=== PATIENT | male | born 1965 | race Caucasian/White ===

== ENCOUNTER 2024-05-04 13:07 | Day surgery (SDC) | payer OTHER, SELFPAY ==
[2024-05-04] VITALS (17 sets, daily range): BP systolic 126–172; BP diastolic 72–103; BMI 40.2
--- NOTE | 2024-05-04 09:16 | ED.GENMED ---
History of Present Illness
General
Chief Complaint: Abdominal Pain
Source: patient and family
Exam Limitations: none
Time Seen by Provider: 05/04/24 09:05
Nursing documentation reviewed up to this point in time: agreed with
History of Present Illness
History of Present Illness:
Patient presents to ED secondary to intermittent right flank/lower abdominal pain over the past 4 days. Patient reports nausea sensation without vomiting. Denies fever or chills. Denies difficulty with urination. Patient has a history of
multiple similar symptoms in the past, secondary to kidney stones. Patient has been drinking more water recently, in hopes of passing the stone. Denies trauma. Denies back pain. Denies recent illness. No recent change in medications or diet.
Past History
Past History
ED Past Medical History: HTN, Hypercholesterolemia and Other (Superficial thrombophlebitis)
ED Past Surgical History: Appendectomy, Cholecystectomy and Urological (Kidney stones)
Social History
Tobacco: Non-smoker
Alcohol: None
Drug: None
Personal:
Living: with family
Review of Systems
Review of Systems
Allergies reviewed?: Yes
All Other Systems: ROS reviewed and negative except as documented in HPI and ROS
Constitutional: Reports no symptoms; Denies fever or chills
ABD/GI: Reports abdominal pain and nausea; Denies vomiting
: Reports flank pain
Musculoskeletal: Reports no symptoms
Skin: Reports no symptoms
Neurological: Reports no symptoms
Phy Exam
Physical Exam
Physical Exam:
Physical Exam
General: moderate painful distress, not acutely ill. afebrile.
Head: nc/at. eomi
Neck: supple. normal range of motion
Abdomen: normal bowel sounds. no focal tenderness. no distention
Neuro: alert and oriented. no focal neurological deficits
Skin: no rash
Psychiatric: well kept. interactive and cooperative
Extremities: no edema. no calf tenderness.
Course
Orders/Labs/Results
Orders:
Orders
05/04/24 09:13
Ketorolac [Toradol] 15 mg IV NOW STA
Ondansetron Injectable [Zofran] 4 mg IV NOW STA
05/04/24 09:14
CT Abd/pel Without Iv Or Oral Urgent
Comment:
Reason For Exam: right flank pain w hx kidney stone
05/04/24 09:27
Basic Metabolic Panel Urgent
Complete Blood Count/With Diff Urgent
05/04/24 09:39
HYDROmorphone [Dilaudid] 0.5 mg IV NOW STA
05/04/24 Lunch
NPO
Allow oral meds: No
Allow clear liquids: No
NPO with Ice Chips: Yes
05/04/24 11:14
Urinalysis Reflex To Culture Urgent
Date Specimen was Collected: 05/04/24
Time Specimen was Collected: 11:13
Urine Microscopic Reflex Cult Urgent
05/04/24 11:29
CeFAZolin SODIUM [Ancef] 3,000 mg Syringe [Syringe-Pump] 0 ml IV PRE PROCEDURE
HYDROmorphone [Dilaudid] 0.5 mg IV Q3HPRN PRN
05/04/24 11:30
0.9% Sodium Chloride 1000 ml [Nss] 1,000 ml IV 100 mls/hr
Anti-embolism (DAGMAR) Hose As Directed
Type: Thigh high
Pneumatic Compression Sleeves As Directed
Type: Thigh high
DX Deep Vein Thrombosis Video Routine
05/04/24 12:00
Ketorolac [Toradol] 30 mg IV Q8H
05/04/24 12:06
HYDROmorphone [Dilaudid] 0.25 mg IV PACU-Q5MPRN PRN
HYDROmorphone [Dilaudid] 0.5 mg IV PACU-Q5MPRN PRN
Meperidine [Demerol] 12.5 mg IV PACU-Q5MPRN PRN
Ondansetron Injectable [Zofran] 4 mg IV PACU-ONCEPRN PRN
Prochlorperazine [Compazine] 5 mg IV PACU-ONCEPRN PRN
Notify MD As Directed
Notify physician if: for SDS patients with known or suspected sleep obstructive sleep apnea, monitor in the
PACU.
Notify MD for any apneic/desaturation episodes
O2 Therapy [RESP] Urgent
Titrate/Wean O2 to maintain O2 sat greater than (%): 92
Special Instructions: -Provide supplemental oxygen to achieve O2 sat of 92% or greater.
-After 15 min, may wean O2 and discontinue if patient is able to maintain O2 sat of 92%
or greater during recovery period.
If patient is a discharge home, without oxygen therapy, notify anestheiologist if
unable to maintain O2 SAT of 92% or greater on room air for MD clearance.
05/04/24 12:30
0.9% Sodium Chloride 1000 ml [Nss] 1,000 ml IV 100 mls/hr
05/04/24 12:38
Midazolam HCl [Versed] 2 mg .ROUTE .STK-MED ONE
05/04/24 12:51
Fentanyl Citrate/Pf [Sublimaze] 100 mcg .ROUTE .STK-MED ONE
05/04/24 13:00
CeFAZolin 2 GRAM [Ancef] 2 grams in 10 ml IV PRE PROCEDURE
Ketorolac [Toradol] 30 mg IV Q8H
Lidocaine 2% Mpf [Xylocaine Mpf 2%] 100 mg .ROUTE .STK-MED ONE
Ondansetron Injectable [Zofran] 4 mg .ROUTE .STK-MED ONE
Propofol [Diprivan] 20 ml .ROUTE .STK-MED
05/04/24 13:10
HYDROmorphone [Dilaudid] 0.5 mg IV Q3HPRN PRN
05/04/24 13:19
Acetaminophen 1000MG/100Ml [Ofirmev] 1,000 mg in 100 ml .ROUTE .STK-MED
05/04/24 13:20
Lidocaine 2% [Lidocaine Uro-Jet 2%] 1 syringe .ROUTE .STK-MED ONE
05/04/24 13:44
Phenazopyridine HCl [Pyridium] 200 mg PO NOW STA
05/04/24 13:48
CR Abdomen - 1 View Routine
Reason For Exam: CYSTO RIGHT STENT PLACEMENT
RF Fluoroscopy, C-arm Routine
05/04/24 13:53
Admit/Transfer Patient As Directed
Co-Sign Provider:
Level of Care: Post Proc/Surg Recovery
Assign to:: Medical/Surgical
Physician / Group: Deion Richter
Diagnosis: Right obstructive kidney stone
Reason for Overnight Stay: Require IV med-pain
PRN Pain Medication Management As Directed
May give lesser potent ordered pain med per pt: Yes
preference::
Protocol:: Medication orders for pain may be administered in a
manner that supports deferring to patient preference
when the pt is:
- Requesting an ordered lesser potent pain medication.
Least to most potent pain medications are defined
as: acetaminophen < NSAID < tramadol < opioids
(morphine, oxycodone, hydromorphone).
- Requesting a lesser dose of the same medication IF
ORDERED.
- Requesting a less intrusive route of administration
if both routes are prescribed by the provider (PO <
IV).
05/04/24 13:55
Code Status As Directed
Resuscitation Status: Full Code
05/04/24 14:21
Phenazopyridine HCl [Pyridium] 200 mg .ROUTE .STK-MED ONE
Abnormal Lab Results
05/04/24 05/04/24
09:27 11:14
Absolute Monos (auto) 1.0 H 10^3/uL
(0.1-0.6)
Monocytes % 11.6 H %
(1.7-9.3)
BUN 33 H mg/dl
(9-20)
Creatinine 3.5 H mg/dL
(0.7-1.3)
Glucose 119 H mg/dl
(70-99)
Ur Occult Blood Reflex 1+ A
(Negative)
Leukocyte Esterase Rfl Trace A
(Negative)
Urine RBC 3-6 A /HPF
(0-2)
Urine Albumin (Reflex) 1+ A
(Neg - Trace)
05/04/24 09:27
05/04/24 09:27
Vital Signs
Initial and Last Documented VS:
Initial Vital Signs
Temp Pulse Resp BP Pulse Ox
98.8 F 104 16 172/103 98
05/04/24 08:55 05/04/24 08:55 05/04/24 08:55 05/04/24 08:55 05/04/24 08:55
Last Documented Vital Signs
Temp Pulse Resp BP Pulse Ox
97.7 F 86 30 154/87 94
05/04/24 13:43 05/04/24 14:15 05/04/24 14:15 05/04/24 14:15 05/04/24 14:15
MDM/Problems Addressed
MDM/Problems Addressed:
Discussed with on-call urology () -recommends admission to hospital service with tentative plan to take patient to the OR later this afternoon, in light of acute renal failure.
*Critical Care Note
Total Time (30-74mins, 75-104mins- exclusive of procedures): Not Applicable
ED Attending Note
-
Portions of this chart may have been created with voice recognition software.� Occasional wrong word or��sound alike� substitutions may have occurred due to the inherent limitations of voice recognition software.
Discharge Plan
Departure
Patient Disposition: Admit
Date of Disposition: 05/04/24
Time of Disposition: 11:10
Admit to: Med/Surg
Presentation/result/management discussed w/ accepting MD/DO: Hospitalist
Discharge Problem:
Renal colic, Acute renal failure
Interventions
Interventions:
*Risk Screen - Suicide Last Done: 05/04/24 08:55
*General Assessment Last Done: 05/04/24 09:31
*Neglect/Abuse Screening Last Done: 05/04/24 08:55
ED- Fall Risk Assessment Last Done: 05/04/24 09:32
*ED COVID-19 Vaccine History Last Done: 05/04/24 09:31
*Nursing Disposition Last Done: 05/04/24 12:26
HE-Fgexcv-Fjxilletwp Assessment Last Done: 05/04/24 09:32
Discharge Date and Time
Discharge Date/Time: 05/04/24 12:26
[2024-05-04] MEDS: TORADOL 15 MG IV (09:24)
[2024-05-04] MEDS: ZOFRAN 4 MG IV (09:24)
[2024-05-04 09:46] LABS: % Basophils 0.5 % (0-2); % Eosinophils 2.1 % (0-6); % Immature Granulocytes 0.2 % (0-0.5); % Lymphocytes 24.7 % (20.5-51.1); % Monocytes 11.6 % (1.7-9.3); % Neutrophils 60.9 % (42.2-75.2); Absolute Eosinophils 0.2 10^3/uL (0-0.7); Hematocrit 42.4 % (39.0-52.0); Hemoglobin 15.4 g/dL (13.0-18.0); Mean Corp Hgb Conc. 36.3 g/dL (33.0-37.0); Mean Corpuscular Hgb 30.4 pg (27.0-31.0); Mean Corpuscular Volume 83.6 fL (80.0-94.0); Mean Platelet Volume 9.8 fL (7.4-10.4); Nucleated Red Blood Cells % 0 % (-); Platelet Count 218 10^3/uL (130-400); Red Blood Cell Count 5.07 10^6/uL (4.70-6.10); Red Cell Dist. Width 12.2 % (11.5-14.5); White Blood Cell Count 8.2 10^3/uL (4.8-10.8)
--- NOTE | 2024-05-04 09:50 | EDRN ---
Pain now 09/27. Dr. Blackwell in room w/pt.
[2024-05-04 09:52] LABS: Blood Urea Nitrogen 33 mg/dl (9-20); Calcium 9.2 mg/dl (8.4-10.2); Carbon Dioxide 27 mmol/L (22-30); Chloride 101 mmol/L (98-107); Estimated Creatinine Clearance 26 ml/min; Glucose 119 mg/dl (70-99); Potassium 4.1 mmol/L (3.5-5.1); Sodium 139 mmol/L (135-145); eGFR 19.16
[2024-05-04] MEDS: DILAUDID 0.5 MG IV (09:52)
--- NOTE | 2024-05-04 09:59 | EDRN ---
Dr. Blackwell TT'd BUN and Creat of 33 and 3.5 results and saw them.
--- NOTE | 2024-05-04 11:04 | EDRN ---
Dr. Blackwell in room w/pt at this time.
--- NOTE | 2024-05-04 11:11 | EDRN ---
Dr. Ornelas, urologist, in room w/pt.
--- NOTE | 2024-05-04 11:16 | EDRN ---
Urine spec obtained and sent at this time.
--- NOTE | 2024-05-04 11:30 | CON.MD ---
Consultation - Medical
-
see dictated note
pt with prior h of stones
presents with right flank pain and cr-3.5
ct shows multiple stones in right kidney and obstructing mid ureteral stone
left kidney somewhat atrophic with prob chronic left upj
plan
reviewed with pt and
npo
given ARF- to OR for right ureteral stent and med admit to monitor renal function
will then need oupt pt scheduling for ureteroscopy and stone extraction
risks, benefits, alternatives and disabilities of procedure reviewed
[2024-05-04 12:06] LABS: Urine Albumin 1+ (Neg - Trace); Urine Bilirubin Negative (Negative); Urine Character Clear (Clear); Urine Color Yellow; Urine Glucose Negative (Negative); Urine Ketone Negative (Negative); Urine Leukocyte Trace (Negative); Urine Nitrite Negative (Negative); Urine Occult Blood 1+ (Negative); Urine Urobilinogen Negative (Neg - 1+)
--- NOTE | 2024-05-04 12:25 | EDRN ---
Addendum entered by Yue Kuhn RN 05/04/24 12:26:
at 12:20 not 12:25
Original Note:
Report called to Jr Yu RN in OR at this time.
--- NOTE | 2024-05-04 12:56 | W.SUR.PREOP ---
Pre-Operative Surgical Note
-
I have examined this patient prior to the performance of the scheduled procedure.
The patient's condition is unchanged from the time of the current History and
Physical and the patient is able to undergo the scheduled procedure.
--- NOTE | 2024-05-04 13:39 | W.IMMPOSTOP ---
Surgical Immed Post Op Note
-
Primary Surgeon: Cleopatra
Pre-op Diagnosis: CLIFF, obstructing mid right ureteral stone, non-obstructing bilateral renal stones
Post-op Diagnosis: Same, BPH w/ obstructing median lobe
Procedure Performed: cysto, right stent placement
Anesthesia Type: LMA
Specimen / Cultures: None/None
Estimated Blood Loss: Negligible
Drains:
1. 4.7Fr x 24 cm JJ right ureteral stent
2. 20Fr Coude catheter
Complications: None
Operative Findings: Obstructing median lobe component w/ angulation of prostatic urethra, normal bladder, final KUB confirming appropriate right ureteral stent position.
[2024-05-04] MEDS: Pyridium 200 MG PO (14:23)
--- NOTE | 2024-05-04 15:40 | PTCARENOTE ---
Pt received from the PACU via stretcher. Transport was w/o incident. Pt is AAOx3, HRR, lungs are clear, resp. easy. Pulse ox 96%RA. VSS. Pt had voided in PACU just prior to transport, will monitor closely. Pt denies pain or nausea at this time. Pt
instructed on plan of care. Pt verbalized understanding of instructions. Call kim is within reach.
--- NOTE | 2024-05-04 16:38 | HPS.HSE ---
Family Physician
-
Family Physician: Christian Potter
Chief Complaint
-
Right-sided flank pain
History of Present Illness
Patient is a 58-year-old male with past medical history of essential hypertension, hyperlipidemia, history of nephrolithiasis, history of appendectomy, history of cholecystectomy came to ER with right sided flank pain for 4 days. Patient had
associated nausea without vomiting. No reported fever or chills. Patient did not notice any signs of hematuria/dysuria. Patient does have history of kidney stones in the past and have seen by urology. Denies of any cardiopulmonary complaints in
ER.
Patient seen in ER by urology services and on CT abdomen pelvis was found to having right-sided obstructive uropathy and hydroureteronephrosis, was taken to the OR with ureteral stent placement. Patient was examined postoperatively in recovery
room. Patient was not voicing any complaints of ongoing chest pain/shortness of breath/cough/fever/abdominal pain/nausea/vomiting during the visit.
Medical History
Past Medical History
Past Medical History: Reports Other
Additional Past Medical History:
essential hypertension, hyperlipidemia, history of nephrolithiasis, history of appendectomy, history of cholecystectomy
Past Surgical History: Reports Other
Social History
Tobacco: Non-smoker
Alcohol: None
Drug: None
Living: With Family
Family History
Family History: Not pertinent
Allergies / Home Medications
Allergies reflects when Allergies were last updated in [facility].
Home Medications with original date entered in [facility]
Allergy/Medication List:
Allergies
Allergy/AdvReac Type Severity Reaction Status Date / Time
No Known Allergies Allergy Unverified 05/04/24 15:33
Home Medications
acetaminophen 325 mg tablet (Tylenol) 650 mg PO Q6HPRN PRN mild pain 05/04/24
amlodipine 10 mg tablet (Norvasc) 10 mg PO DAILY 05/04/24
lisinopril 20 mg tablet 20 mg PO DAILY 05/04/24
simvastatin 40 mg tablet (Zocor) 40 mg PO QPM 05/04/24
Review of Systems
-
A 12 point ROS was completed and negative except as noted: Yes
Physical Exam
Vital Signs
Vital Signs
Temp Pulse Resp BP Pulse Ox
98 F 77 16 149/85 96
05/04/24 15:40 05/04/24 15:40 05/04/24 15:40 05/04/24 15:40 05/04/24 15:40
Physical Exam
General: No Apparent Distress
HEENT: NormoCephalic, Anicteric and Atraumatic
Respiratory: Clear
Cardiac: S1/S2 and Regular Rhythm; No Murmur or Rub
GI: Soft, Non Tender, Non Distended and Normal Bowel Sounds; No Organomegaly
Musculoskeletal: No Clubbing, No Cyanosis and No Edema
Skin: No Rash
Neuro: Awake, Alert, Oriented and Nonfocal/grossly intact
Laboratory Results
-
05/04/24 09:27
05/04/24 09:27
Impression/Plan
-
CT a/p
1. MODERATE ACUTE RIGHT HYDROURETERONEPHROSIS secondary to a 6.1 mm obstructing calculus in the right mid ureter.
2. Multiple bilateral nonobstructing intrarenal calculi.
3. Mild dilatation of the left intrarenal collecting system and left renal pelvis suspicious for a mild chronic left ureteropelvic junction obstruction.
4. Multiple left renal cysts (including complex rim-calcified and hemorrhagic cysts).
5. Moderate diffuse hepatic steatosis.
6. Mild mesenteric lymphadenopathy.
7. Mild splenomegaly.
8. Moderate-sized paraesophageal hiatal hernia.
9. Previous cholecystectomy.
10. Mild diverticulosis in the colon.
11. Mildly enlarged prostate gland causing chronic urinary bladder outlet obstruction.
12. Severe discogenic degenerative disease at L4/L5.
13. 1.6 cm part solid pulmonary nodule in the right lower lobe. Diagnostic possibilities are (1) right lower lobe lung cancer, (2) focal scarring/atelectasis, or (3) a focal region of infectious or inflammatory pneumonitis. A follow-up chest CT
examination in 3-6 months is recommended.

1. Right obstructive uropathy
Right hydroureteronephrosis
-6.1 mm obstructing calculus in the right mid ureter
-Patient underwent ureteral stent placement
-UA relatively clear, monitor off of abx
-Maintain on pain meds/anti-emetics/IVF
2. Right lower lobe pulmonary nodule
-Incidental finding on CT abdomen pelvis, will require follow-up with pulmonology in office
3. CLIFF
-Last known creatinine in February 09 was 1.1, today its 3.5
-Monitor post IVF
-Leos cath in place
-Hold lisinopril for now
4. Essential HTN
-maintain on amlodipine only
Paraesophageal hiatal hernia
Diverticulosis
Bilateral nephrolithiasis
Multiple renal cysts
Chronic urinary ROBIN
DVT PPX- SCD
Full code
Total time spent :77 mins
I personally saw and examined the patient.
I have reviewed all diagnostic interpretations and treatment plans as written.
Time includes patient management by me, time spent at the patients bedside, time to review lab and imaging results, discussing patient care, documentation in the medical record, and time spent with the family or caregiver and discussing care plan
with RN/Consultants.
[2024-05-04] MEDS: LIPITOR 20 MG PO (17:30)
[2024-05-04] MEDS: NSS 1000 IV (17:30)
[2024-05-04] MEDS: TYLENOL 650 MG PO (21:58)
[2024-05-05 03:15] VITALS: BP 136/85
[2024-05-05] MEDS: NSS 1000 IV (04:01)
[2024-05-05 06:40] LABS: Hematocrit 39.1 % (39.0-52.0); Hemoglobin 13.6 g/dL (13.0-18.0); Mean Corp Hgb Conc. 34.8 g/dL (33.0-37.0); Mean Corpuscular Volume 86.3 fL (80.0-94.0); Mean Platelet Volume 9.8 fL (7.4-10.4); Platelet Count 233 10^3/uL (130-400); Red Blood Cell Count 4.53 10^6/uL (4.70-6.10); White Blood Cell Count 7.3 10^3/uL (4.8-10.8)
[2024-05-05 07:08] LABS: Blood Urea Nitrogen 37 mg/dl (9-20); Carbon Dioxide 24 mmol/L (22-30); Chloride 106 mmol/L (98-107); Estimated Creatinine Clearance 44 ml/min; Glucose 129 mg/dl (70-99); Sodium 142 mmol/L (135-145); eGFR 35.37
[2024-05-05 07:24] VITALS: BP 134/85
[2024-05-05] MEDS: NORVASC 10 MG PO (08:51)
[2024-05-05 10:54] VITALS: BP 139/77
--- NOTE | 2024-05-05 11:47 | W.PN.URO.CBU ---
Today's Communication / Plan
-
fit for discharge from standpoint
Assessment / Plan
-
CLIFF, obstructing mid right ureteral stone, non-obstructing bilateral renal stones
improving renal fxn
Diagnosis
-
Date of Service: May 05, 2024
-
Patient Diagnosis: CLIFF, obstructing mid right ureteral stone, non-obstructing bilateral renal stones
BPH w/ obstructing median lobe
Procedure Performed: cysto, right stent placement
Post Op Day: 1
Subjective
-
'I feel ready to go home'
Objective
-
Vital Signs
Temp Pulse Resp BP Pulse Ox
98.6 F 85 15 139/77 96
05/05/24 10:54 05/05/24 10:54 05/05/24 10:54 05/05/24 10:54 05/05/24 10:54
Intake and Output
05/04/24 05/05/24 05/06/24
06:59 06:59 06:59
Intake Total 2360 / 2360
Output Total 2024
Balance 335 / 335
Intake:
Oral fluids 960 / 960
IV fluids (Total) 1400 / 1400
NSS 200 / 200
Output:
Urine, Voided 2024
Other:
Number of approximated MODERATE 2
amounts of urine
Laboratory Results
05/05/24 06:15
05/05/24 06:15
Physical Exam
-
General - well developed, well nourished, no acute distress
--- NOTE | 2024-05-05 12:03 | CM ---
CM following re: d/c planning.
Pt for d/c today, cleared by .
Post op day 1: cysto, right stent placement.
Pt from home, resides with in private residence.
Pt independent with mobility and ADLs.
No DME or VN in the home.
PCP is Dr. Potter and pharmacy [facility].
Pt has no d/c needs. Family transport home.
[2024-05-05] MEDS: AFLURIA (36 mos+) 2024-2025 FORMULA 0.5 ML IM (12:39)
--- NOTE | 2024-05-05 14:11 | W.PN.HOSP.TC ---
Today's Communication/Plan
-
d/c home
Assessment / Plan
Assessment / Plan
CT a/p
1. MODERATE ACUTE RIGHT HYDROURETERONEPHROSIS secondary to a 6.1 mm obstructing calculus in the right mid ureter.
2. Multiple bilateral nonobstructing intrarenal calculi.
3. Mild dilatation of the left intrarenal collecting system and left renal pelvis suspicious for a mild chronic left ureteropelvic junction obstruction.
4. Multiple left renal cysts (including complex rim-calcified and hemorrhagic cysts).
5. Moderate diffuse hepatic steatosis.
6. Mild mesenteric lymphadenopathy.
7. Mild splenomegaly.
8. Moderate-sized paraesophageal hiatal hernia.
9. Previous cholecystectomy.
10. Mild diverticulosis in the colon.
11. Mildly enlarged prostate gland causing chronic urinary bladder outlet obstruction.
12. Severe discogenic degenerative disease at L4/L5.
13. 1.6 cm part solid pulmonary nodule in the right lower lobe. Diagnostic possibilities are (1) right lower lobe lung cancer, (2) focal scarring/atelectasis, or (3) a focal region of infectious or inflammatory pneumonitis. A follow-up chest CT
examination in 3-6 months is recommended.

1. Right obstructive uropathy
Right hydroureteronephrosis
-6.1 mm obstructing calculus in the right mid ureter
-Patient underwent ureteral stent placement
-UA relatively clear, monitor off of abx
-Maintain on pain meds/anti-emetics/IVF
2. Right lower lobe pulmonary nodule
-Incidental finding on CT abdomen pelvis, will require follow-up with pulmonology in office
3. CLIFF - Improved
-Last known creatinine in February 09 was 1.1, came to down 2.1 today
-Instructed to hold lisinopril.
4. Essential HTN
-maintain on amlodipine only
Paraesophageal hiatal hernia
Diverticulosis
Bilateral nephrolithiasis
Multiple renal cysts
Chronic urinary ROBIN
DVT PPX- SCD
Full code
Anticipated Discharge: Today
Subjective/Interval History
-
Date of Service: May 05, 2024
no complains overnight
afebrile overnight
Objective Data
-
Labs:
Laboratory Results
05/05/24
06:15
WBC 7.3
Hgb 13.6
Hct 39.1
Plt Count 233
Sodium 142
Potassium 5.0
Chloride 106
Carbon Dioxide 24
BUN 37 H
Creatinine 2.1 H
Glucose 129 H
Calcium 9.0
Vital Signs:
Vital Signs
Temp Pulse Resp BP Pulse Ox
98.6 F 85 15 139/77 96
05/05/24 10:54 05/05/24 10:54 05/05/24 10:54 05/05/24 10:54 05/05/24 10:54
I&O
05/04/24 05/05/24 05/06/24
06:59 06:59 06:59
Intake Total 2360 / 2360
Output Total 2024
Balance 335 / 335
Review of Systems
-
Respiratory: Reports No Symptoms
Cardiac: Reports No Symptoms
Abdomen/GI: Reports No Symptoms
Physical Exam
-
General: No Apparent Distress and Comfortable
HEENT: Negative Oxygen
Respiratory: Clear to Auscultation
Cardiac: Regular Rhythm and S1/S2; Negative Murmur or Rub
GI: Soft, Nontender, Nondistended and Normal Bowel Sounds
Musculoskeletal: No Edema
Neuro: Awake, Alert, Oriented, No Motor Deficits and Nonfocal/Grossly Intact
Psych: Calm
--- NOTE | 2024-05-05 17:59 | W.DCSUMMARY ---
Discharge Summary
Discharge Data
Date of Admission: 05/04/24
Date of Discharge: 05/05/24
-
Pending Results: No
Hospital Course
Discharging Physician : Dr Deion Richter
Disposition : Home
Primary care physician : Dr Christian Potter
Principal Discharge diagnosis :
Right-sided obstructive uropathy status post ureteral stent placement
Acute kidney injury
Right lower lobe pulmonary nodule of 1.6cm
Suspected left ureterovesical junction narrowing
Atrophic left kidney
Chronic Discharge diagnosis :
Essential hypertension
Paraesophageal hiatal hernia
Diverticulosis
History of bilateral nephrolithiasis
Multiple renal cyst
Chronic bladder outlet obstruction
Hospital Course :
Patient is a 58-year-old male with no mentioned past medical history came to ER with new onset of right-sided flank pain. Patient had associated nausea and vomiting. In ER on CT abdomen pelvis patient was found to having right mid ureter
obstructing stone causing hydroureteronephrosis. Urology was involved in care and patient was taken to the OR with stent placement. Postprocedure patient was admitted overnight for monitoring. Patient had significant renal dysfunction with
creatinine elevated to 3.5, patient was maintained on IV hydration with which patient renal function improved. At discharge patient was provided a prescription for follow-up blood work within 1 week. Patient instructed to hold home medication of
lisinopril for 48 hours. Patient also incidentally noted to having a right lower lobe pulmonary nodule of 1.6 cm and a follow-up provided with pulmonology office. Patient was discharged to home at this point with follow-up with urology in office.
Important imaging findings :
None
Procedure findings :
None
Discharge Plan
-
Patient Disposition: Home (Routine Discharge)
Discharge Diagnosis/Procedures: ARF, obstructing right ureteral stone s/p cystoscopy + right stent placement
Condition: Good
Diet: No restrictions
Activity: No restrictions
Driving Restrictions: As prior to admission
Bathing Restrictions: None
Blood Work: BMP in 1 week
Activity Restrictions/Additional Instructions:
You are clear to return to work from Tuesday.
Referrals:
Moisés Pappas MD [Active] - in three to four weeks
Jamar Whelan MD [Active] -
(Please call [facility] to schedule a preop visit within 7-10 days of your procedure.
Dr. Whelan will schedule you for an outpatient kidney stone surgery at that visit.)
Christian Potter MD [Family Provider] -
Prescriptions:
Continued
acetaminophen [Tylenol] 325 mg Tablet
650 mg PO Q6HPRN PRN (Reason: mild pain)
simvastatin [Zocor] 40 mg Tablet
40 mg PO QPM
amlodipine [Norvasc] 10 mg Tablet
10 mg PO DAILY
Held
lisinopril 20 mg Tablet
20 mg PO DAILY
Hold Instructions: Resume on 05/09/24.
Discharge Orders:
Discharge Patient (As Directed); Ordered 05/05/24
Ordered By: Deion Richter
Discharge Date and Time
Discharge Date/Time: 05/05/24 12:56
Print Language: SAO TOMEAN
--- NOTE | 2024-05-21 09:26 | OID.L.PAT ---
Pulmonary Nodule Pat Letter
- -
05/21/24
TANNER NGUYEN
[address]
[place], [place]
Peter HART,
A pulmonary nodule was seen on an imaging study done by [facility]. This was reviewed by the [facility] Pulmonary Nodule Advisory Board and the following recommendation was made:
Recommendation: Follow up CT Chest - now
If you have any questions, please do not hesitate to contact your primary care physician. If you are in need of a Physician, you can go to [email or web address] and click on 'Find a Provider'. Type 'Family Medicine' in the search.
Oncology Nurse Navigator
[facility]
[phone]
--- NOTE | 2024-05-21 09:26 | OID.L.REC ---
Pulmonary Nodule Follow Up
- Recommendation
05/21/24
Pulmonary Nodule Review Recommendations
Your patient, TANNER NGUYEN, had a pulmonary nodule seen on an imaging study done on 05/04/24 in the [facility] Emergency Room.
This was reviewed by the [facility] Pulmonary Nodule Advisory Board and the following recommendation was made:
Recommendation: Follow up CT Chest - now
If you have any questions please do not hesitate to contact us.
Sincerely,
Oncology Nurse Navigator
[facility]
[phone]
== END 2024-05-05 12:56 | disposition home or self-care (01) ==
LOC: SDS 13:07
PROVIDERS: ATTENDING PHYSICIAN Hospitalist; CONSULT PHYSICIAN Specialist; EMERGENCY PHYSICIAN Emergency Medicine; FAMILY PHYSICIAN Family Medicine
DX: N20.2 Calculus of kidney with calculus of ureter (principal); N40.1 Benign prostatic hyperplasia with lower urinary tract symptoms; N17.9 Acute kidney failure, unspecified
CPT/HCPCS: 52332; 74018; 74176; 76000; 80048; 81003; 81015; 85025; 85027; 90686; 96374; 96375; 99284; C1769; C2617; G0008

== ENCOUNTER → 2024-07-14 09:02 | Outpatient (REF) | payer OTHER, SELFPAY | LOC: RAD 09:02 | PROVIDERS: ATTENDING PHYSICIAN Physician Assistant Medical | DX: R91.1 Solitary pulmonary nodule (principal) | CPT/HCPCS: 71250 ==

== ENCOUNTER → 2024-12-18 08:55 | Outpatient (REF) | payer OTHER, SELFPAY | LOC: HWRAD 08:55 | PROVIDERS: ATTENDING PHYSICIAN Internal Medicine Critical Care Medicine; FAMILY PHYSICIAN Physician Assistant Medical | DX: R91.1 Solitary pulmonary nodule (principal) | CPT/HCPCS: 71250 ==

== ENCOUNTER → 2025-01-09 08:40 | Outpatient (REF) | payer OTHER, SELFPAY | LOC: PET 08:40 | PROVIDERS: ATTENDING PHYSICIAN Internal Medicine Critical Care Medicine | DX: R91.1 Solitary pulmonary nodule (principal) | CPT/HCPCS: 78815; A9552 ==